=== PATIENT | female | born 1965 | race Caucasian/White ===

== ENCOUNTER 2021-01-26 18:04 | Inpatient (IN) | payer BC ==
[~2021-01-26] VITALS: Ht 160 cm; Wt 82.8 kg
[2021-01-26] MEDS ORDERED: CLOPIDOGREL75 MG PO (23:16)
[2021-01-26] MEDS ORDERED: LOPRESSOR 25 MG25 MG PO (23:16)
[2021-01-26] MEDS ORDERED: OMEPRAZOLE20 MG PO (23:17)
[2021-01-26] MEDS ORDERED: SERTRALINE HCL25 MG PO (23:17)
[2021-01-27] MEDS ORDERED: WILZIN25 MG PO (09:49)
[2021-01-27] MEDS ORDERED: ATORVASTATIN CA20 MG PO (23:16)
[2021-01-28 02:52] LABS: HEMOGLOBIN 13.1 gm/dl (12.3-15.3); RED BLOOD COUNT 4.13 M/UL (4.00-5.10); WHITE BLOOD COUNT 8.4 K/UL (4.5-11.0)
[2021-01-28 03:21] LABS: BUN/CREATININE RATIO 23 (0-10)
[2021-01-28] MEDS ORDERED: ATORVASTATIN CA20 MG PO (13:03)
[2021-01-28] MEDS ORDERED: ISOSORBIDE MONO30 MG PO (13:03)
== END 2021-01-28 14:36 | disposition home or self-care (01) | DRG 287 ==
LOC: PROG CARE 18:04
PROVIDERS: ADMIT Internal Medicine
PROC: 4A023N7 Measurement of Cardiac Sampling and Pressure, Left Heart, Percutaneous Approach (ICD-10-PCS; principal; 2021-01-27)
PROC: B2111ZZ Fluoroscopy of Multiple Coronary Arteries using Low Osmolar Contrast (ICD-10-PCS; 2021-01-27)
PROC: B24BZZ4 Ultrasonography of Heart with Aorta, Transesophageal (ICD-10-PCS; 2021-01-27)
DX: I25.10 Atherosclerotic heart disease of native coronary artery without angina pectoris (principal); I25.2 Old myocardial infarction; Z20.822 Contact with and (suspected) exposure to COVID-19; E78.5 Hyperlipidemia, unspecified; E66.9 Obesity, unspecified; F32.9 Major depressive disorder, single episode, unspecified; F41.9 Anxiety disorder, unspecified; F17.210 Nicotine dependence, cigarettes, uncomplicated; I08.3 Combined rheumatic disorders of mitral, aortic and tricuspid valves; Z86.73 Personal history of transient ischemic attack (TIA), and cerebral infarction without residual deficits; Z79.01 Long term (current) use of anticoagulants; Z79.82 Long term (current) use of aspirin; Z90.710 Acquired absence of both cervix and uterus; Z88.2 Allergy status to sulfonamides; Z82.49 Family history of ischemic heart disease and other diseases of the circulatory system; Z68.32 Body mass index [BMI] 32.0-32.9, adult
CPT/HCPCS: ECHO; 36415; 80053; 80061; 80307; 82550; 82553; 83036; 83880; 84439; 84443; 84484; 84550; 85025; 93005; 93306; 99152; 99153; C1769; C1887; C1894; J1644; J1650; J2250; J3010; J7030; J7040; Q9967